=== PATIENT | male | born 1935 | race Caucasian/White ===

== ENCOUNTER 2016-10-24 08:53 | Day surgery (SDC) | payer MEDICARE, OTHER ==
[~2016-10-24 08:53] MED LIST: EPINEPHRINE INJ 1 MG/10 ML DISP.SYRIN ONE; FENTANYL CITRATE INJ/PF 100 MCG/2 ML AMPUL ONE; FLUMAZENIL INJ 0.5 MG/5 ML VIAL IV ONE; GLUCAGON,HUMAN RECOMB 1 MG INJ ONE; GLYCOPYRROLATE INJ 0.4 MG/2 ML VIAL ONE; NALOXONE HCL INJ/PF 0.4 MG/1 ML SDV ONE; ONDANSETRON HCL INJ/PF 4 MG/2 ML SDV ONE
[2016-10-24 09:56] LABS: HEMOGLOBIN 15.3 g/dL (13.5-17.0); HGB HCT DIFFERENCE 1.9; MEAN CORPUSCULAR HEMOGLOBIN 29.5 pg (27.0-33.4); MEAN CORPUSCULAR HGB CONC 34.8 g/dL (32.0-36.0); MEAN CORPUSCULAR VOLUME 85 fl (80-97); RED BLOOD COUNT 5.19 10^6/uL (4.35-5.55); RED CELL DISTRIBUTION WIDTH 13.6 % (11.5-14.0); WHITE BLOOD COUNT 5.1 10^3/uL (4.0-10.5)
[2016-10-24] MEDS: MIDAZOLAM 2 MG/2 ML INJ ONE ×2 (12:39→12:43)
--- NOTE | 2016-10-24 13:13 | Operative Report ---
Operative Report DATE OF SURGERY: 10/24/16 PREOPERATIVE DIAGNOSIS: Screening for colon cancer POSTOPERATIVE DIAGNOSIS: Rectal polyp. Thrombocytopenia. OPERATION: Colonoscopy with snare polypectomy of distal rectal polyp. SURGEON: LARISSA REYES ANESTHESIA: Moderate Sedation TISSUE REMOVED OR ALTERED: Distal rectal polyp COMPLICATIONS: None ESTIMATED BLOOD LOSS: Minimal INTRAOPERATIVE FINDINGS: Half centimeter sessile polyp at the distal rectum. PROCEDURE: Informed consent was obtained. Patient was brought to the endoscopy suite. IV sedation with Versed and fentanyl was administered. Digital rectal exam revealed no palpable perianal masses. Endoscope was passed via the patient's anus it was fed to the cecum. The bowel prep was good visualization was good. The cecum, right colon, transverse colon, descending colon, and sigmoid colon were all normal with no polyps and no masses. At the distal rectum there was 1/ 2 cm sessile polyp which was snare polypectomy and the specimen retrieved. Hemostasis appeared excellent. Patient tolerated procedure well with no apparent complications and was taken to the recovery area in stable condition. Assessment: Distal rectal polyp status post snare polypectomy. I will follow- up with the patient with the biopsy results. Patient noted preoperatively with mild thrombocytopenia with platelet count of 111. I will discuss follow-up for this thrombocytopenia with the patient at the follow-up visit.
--- NOTE | 2016-10-24 13:15 | PDOC DISCHARGE SUMMARY ---
Discharge Summary (SDC) - Discharge Final Diagnosis: Distal rectal polyp, thrombocytopenia. Date of Surgery: 10/24/16 Discharge Date: 10/24/16 Condition: Good Treatment or Instructions: Underwent colonoscopy with snare polypectomy of distal rectal polyp. May discharge patient home when met discharge criteria. Follow-up with me in 2 weeks. Discharge Diet: As Tolerated Discharge Activity: Activity As Tolerated Report the Following to Your Physician Immediately: Increase in Pain, Unusual Bleeding
[2016-10-24 16:32] VITALS: BP 130/71
== END 2016-10-24 14:20 | disposition home or self-care (01) ==
LOC: END 08:53
PROVIDERS: ATTEND Surgery
PROC: 0DBP8ZX Excision of Rectum, Via Natural or Artificial Opening Endoscopic, Diagnostic (ICD-10-PCS; principal; 2016-10-24 10:30)
DX: Z12.11 Encounter for screening for malignant neoplasm of colon (principal); D12.8 Benign neoplasm of rectum; N40.0 Benign prostatic hyperplasia without lower urinary tract symptoms; Z79.899 Other long term (current) drug therapy
CPT/HCPCS: 45385; 36415; 85027; 88305 ×2; J2250; J3010; J0171; J1610; J2310; J2405; J3490